=== PATIENT | male | born 1995 | race American Indian/Alaskan Native ===

== ENCOUNTER 2016-12-14 12:07 | Emergency (ER) | payer MEDICAID, OTHER ==
[2016-12-14 12:36] VITALS: PULSE 86; TEMP 98.7; O2SAT 99
[2016-12-14] MEDS ORDERED: Oxycodone/Acetaminophen 5/325 mg Tab PO STA (12:53)
--- NOTE | 2016-12-14 12:56 | C.PDOC ---
History Of Present Illness 21 yo male come in for evaluation of Left upper toothache and facial swelling gradually developed for past 2 days. Pt denies fever, chills, drooling, dysphagia, dyspnea, trismus, recent dental work. Ambulate to ED for evaluation, not n nay apparent distress. Time Seen by Provider: 12/14/16 12:39 Chief Complaint (Nursing): Dental Pain History Per: Patient Onset/Duration Of Symptoms: Gradual Current Symptoms Are (Timing): Worse Past Medical History Reviewed: Historical Data, Nursing Documentation, Vital Signs Vital Signs: Last Vital Signs Temp 98.7 F 12/14/16 12:35 Pulse 86 12/14/16 12:35 Resp 20 12/14/16 12:35 BP 113/70 12/14/16 12:35 Pulse Ox 99 12/14/16 12:59 - Medical History PMH: No Chronic Diseases Surgical History: No Surg Hx Family History: States: No Known Family Hx - Social History Hx Tobacco Use: No Hx Alcohol Use: No Hx Substance Use: No - Immunization History Hx Tetanus Toxoid Vaccination: Yes Hx Influenza Vaccination: Yes Hx Pneumococcal Vaccination: Yes Review Of Systems Except As Marked, All Systems Reviewed And Found Negative. Constitutional: Negative for: Fever, Chills ENT: Positive for: Mouth Pain, Mouth Swelling. Negative for: Ear Discharge, Nose Discharge, Throat Swelling Respiratory: Negative for: Cough, Shortness of Breath, Wheezing Musculoskeletal: Negative for: Neck Pain Neurological: Negative for: Weakness, Numbness, Altered Mental Status, Headache , Dizziness Physical Exam - Physical Exam Appears: Well, Non-toxic, No Acute Distress Skin: Normal Color, Warm, Dry, No Rash Eye(s): bilateral: Normal Inspection Ear(s): Bilateral: Normal Nose: Normal, No Discharge Oral Mucosa: Moist Tongue: Normal Appearing Lips: Normal Appearing Teeth: Tender To Palpation (Left upper lateral incisor and canine) Gingiva: Erythema (Left upper lateral incisor and canine), Swelling (Left upper lateral incisor and canine), Abscess (Left upper lateral incisor and canine) Throat: Normal, No Erythema, No Exudate, No Drooling Neck: Normal, Normal ROM, Supple Lymphatic: Normal Exam (cervical) Respiratory: Normal Breath Sounds Extremity: Normal ROM Neurological/Psych: Oriented x3, Normal Speech ED Course And Treatment O2 Sat by Pulse Oximetry: 99 Pulse Ox Interpretation: Normal Progress Note: On re-evaluation, pt is afebrile, hemodynamicaly stable. Non- toxic. Ambulatory in ED with stable gait. Pulse Ox 99% RA. neck: (-) normal exam. ENT: exam c/w Left upper frontal teeth dental abscess, early. No flactulance. uvula midline, huma nathaniel. No facial cellulitis. Lungs: CTA B/L, BS equal B/L. Neurologicaly intact. Pt advised on course of ds. ref. to F/u with Dentist in 2-3 days for re -eavl. return if any new changes. Disposition Counseled Patient/Family Regarding: Diagnosis, Need For Followup, Rx Given - Disposition Referrals: [facility] [Provider Group] [facility] [Provider Group] Disposition: HOME/ ROUTINE Disposition Time: 12:54 Condition: STABLE Additional Instructions: Take medication as prescribed Warm salty water tooth baths 2-3 times daily for 5 minutes Follow up with Dentist in 1-2 days for re-evaluation. Return to ED if any worsening or new changes. Prescriptions: Clindamycin [Cleocin] 300 mg PO Q6 #28 cap oxyCODONE/Acetaminophen [Percocet 5/325 mg Tab] 1 tab PO BID #6 tab predniSONE [Prednisone] 20 mg PO DAILY #3 tab Instructions: Dental Abscess (ED) - Clinical Impression Clinical Impression: Dental abscess
[2016-12-14] MEDS ORDERED: Oxycodone/Acetaminophen 5/325 mg Tab ONE (12:57)
[2016-12-14 13:55] VITALS: BP 115/81; RESP 16
== END 2016-12-14 13:40 | disposition home or self-care (01) ==
LOC: C.ER 12:07
DX: K04.7 Periapical abscess without sinus (principal)